=== PATIENT | female | born 1940 | race Caucasian/White ===

== ENCOUNTER → 2018-06-25 14:03 | Outpatient (CLI) | payer MEDICARE, OTHER, SELFPAY ==
[2018-06-25 14:14] LABS: RBC Urine None Seen (0-5/HPF)
[2018-06-25 14:51] LABS: Appearance Urine UA CLOUDY; Bilirubin Urine UA NEGATIVE (NEGATIVE); Color Urine UA YELLOW; Glucose Urine UA NEGATIVE (Negative); Ketones Urine UA NEGATIVE (NEGATIVE); Leukocyte Esterase Urine UA 1+ (NEGATIVE); Nitrite Urine UA POSITIVE (Negative); Occult Blood Urine UA NEGATIVE (Negative); Protein Urine UA NEGATIVE (Negative); Specific Gravity Urine UA 1.015 (1.000-1.035); Urobilinogen Urine UA 0.2 E.U./dL (0.2)
[2018-06-25 14:57] LABS: Amorphous Sediment Urine 1+; Bacteria Urine Many (>30); Culture Indicated Urine Specimen Cultured; Squamous Epithelial Cell Urine 1-5 /HPF; WBC Urine 10-30/HPF (0-5/HPF)
== END ==
PROVIDERS: Family Provider Physician Assistant; PCP Physician Assistant; Visit Provider Internal Medicine
DX: R35.0 Frequency of micturition (principal)
CPT/HCPCS: 81001; 87077; 87086; 87186

== ENCOUNTER → 2018-08-13 13:52 | Outpatient (CLI) | payer MEDICARE, OTHER, SELFPAY ==
--- NOTE | 2018-08-13 | DI.MG.S_ITS ---
UNILATERAL LEFT DIGITAL SCREENING MAMMOGRAM 3D/2D WITH CAD: 08/13/2018 CLINICAL: Routine screening. Family history of breast cancer. Comparison is made to exams dated: 06/15/2017 mammogram, 04/22/2016 mammogram, and 04/02/2015 mammogram - [facility]. There are scattered fibroglandular elements in left breast. Current study was also evaluated with a Computer Aided Detection (CAD) system. There are benign vascular calcifications and calcifications in the left breast. No significant masses, calcifications, or other findings are seen in the breast. There has been no significant interval change. IMPRESSION: There is no mammographic evidence of malignancy. A 1 year screening mammogram is recommended. This exam was interpreted at Station ID: [id number]. NOTE: For mammograms, a report in lay terms will be sent to the patient. Approximately 15% of breast malignancies will not be visualized mammographically. In the management of a palpable breast mass, a negative mammogram must not discourage biopsy of a clinically suspicious lesion. Electronically Signed By: Margarito lucia/marsha:08/13/2018 18:21:42 letter sent: Normal Exam ACR BI-RADS Category 2: Benign Finding(s) [id number]
== END ==
PROVIDERS: Family Provider Physician Assistant; PCP Physician Assistant; Visit Provider Physician Assistant
DX: Z12.31 Encounter for screening mammogram for malignant neoplasm of breast (principal); Z80.3 Family history of malignant neoplasm of breast
CPT/HCPCS: 77063; 77067

== ENCOUNTER 2018-09-02 10:56 | Emergency (ER) | payer MEDICARE, OTHER, SELFPAY ==
[2018-09-02 10:57] VITALS: BP 150/61; PULSE 125; RESP 20; TEMP 36.6; O2SAT 91; BMI 47.0
--- NOTE | 2018-09-02 11:38 | DI.RAD.S_ITS ---
PROCEDURE: XR CHEST 2V INDICATIONS: cough with shortness of breath TECHNIQUE: 2 views of the chest were acquired. COMPARISON: Merged With [facility], , CHEST 2 VIEW, 05/22/2009, 12:29. FINDINGS: Surgical changes and devices: Surgical clips project over the medial right chest. Lungs and pleura: Lungs are clear. No pleural effusions or pneumothorax. Mediastinum: Mediastinal contours are normal. Heart size is normal. Bones and chest wall: No suspicious bony abnormalities. Soft tissues appear unremarkable. IMPRESSION: No evidence acute pulmonary process. Dictated by: Bradley Carter M.D. on 09/02/2018 at 12:38 Approved by: Bradley Carter M.D. on 09/02/2018 at 12:39
[2018-09-02 12:00] VITALS: BP 109/57; PULSE 80; O2SAT 97
[2018-09-02 12:00] LABS: Influenza A and B by PCR Rapid Negative (Negative)
[2018-09-02] MEDS: SODIUM CHLORIDE 0.9% 1,000 ML 1000 ML IV (12:46)
[2018-09-02 12:51] LABS: Add Manual Diff / Slide Review NO; Basophils Absolute Auto 100 /uL (0-100); Basophils Percent Auto 0.7 % (0-2); Eosinophils Absolute Auto 300 /uL (0-450); Eosinophils Percent Auto 3.3 % (2-4); Lymphocytes Absolute Auto 1400 /uL (1100-4500); Lymphocytes Percent Auto 18.6 % (25-40); Mean Corpuscular HGB Conc 33.3 % (30-36); Mean Corpuscular Hemoglobin 29.7 PG (26-34); Mean Corpuscular Volume 89.3 fL (80-100); Monocytes Absolute Auto 700 /uL (0-900); Monocytes Percent Auto 9.1 % (3-14); Neutrophils Absolute Auto 5300 /uL (1500-7000); Neutrophils Percent Auto 68.3 % (50-75); Platelet Count 251 X10^3/uL (150-400); Red Blood Cell Count 4.37 X10^6/uL (4.0-5.2); Red Cell Distribution Width 14.2 % (11.6-14.8); White Blood Cell Count 7.8 X10^3/uL (4.5-11.0)
[2018-09-02 13:01] LABS: Alanine Aminotransferase 34 IU/L (9-52); Albumin 4.3 g/dL (3.5-5.0); Albumin Globulin Ratio 1.3 (1.0-2.8); Alkaline Phosphatase 98 U/L (38-126); Aspartate Aminotransferase 44 IU/L (14-36); Bilirubin Total 0.5 mg/dL (0.2-1.3); Blood Urea Nitrogen 9 mg/dL (7-17); Calcium 8.9 mg/dL (8.4-10.2); Carbon Dioxide 29 mmol/L (22-32); Chloride 87 mmol/L (98-107); Estimated Glomerular Filt Rate > 60.0 mL/min (>60); Globulin 3.2 g/dL (1.7-4.1); Glucose 101 mg/dL (80-110); HEMOLYSIS 34 (0-50); Potassium 4.3 mmol/L (3.4-5.1); Sodium 128 mmol/L (137-145); Total Protein 7.5 g/dL (6.3-8.2)
[2018-09-02 13:30] VITALS: PULSE 88; RESP 18; O2SAT 98
[2018-09-02] MEDS: ALBUTEROL/IPRATROPIUM 3 ML AMPUL INH (13:34)
[2018-09-02 13:35] VITALS: PULSE 78; RESP 18; O2SAT 96
[2018-09-02] MEDS: predniSONE 20 MG TABLET 60 MG PO (13:52)
[2018-09-02] MEDS: AZITHROMYCIN 250 MG TABLET 500 MG PO (13:52)
[2018-09-02 14:07] VITALS: BP 157/89; PULSE 88; RESP 18; O2SAT 98
--- NOTE | 2018-09-06 13:08 | ED.URI ---
HPI - URI/Sore Throat General Chief Complaint: Upper Respiratory Symptoms Stated Complaint: CHEST TIGHTNESS Time Seen by Provider: 09/02/18 11:45 Source: patient Mode of arrival: ambulatory Limitations: no limitations History of Present Illness HPI Narrative: Patient complains of cough and wheezing for the last 10 days. She denies fevers, chills, or sweats. She states she has been coughing up some yellowish sputum. No chest pain. No vomiting or diarrhea. No abdominal pain. No sore throat. No other complaints at this time. Related Data Home Medications Medication Instructions Recorded Confirmed MULTIVITAMIN (Multivitamin Q DAY #0 11/16/09 -) Previous Rx's Medication Instructions Recorded hydrocodone-acetaminophen 0 tab PO Q6HP PRN #10 tab 01/23/16 oxycodone-acetaminophen 0 tab PO Q4HP PRN #14 tab 06/30/16 sulfamethoxazole-trimethoprim 1 tab PO BID 7 Days #0 tab 07/06/16 albuterol sulfate 2 puff INHALATION Q4-6H PRN #8 gram 09/02/18 azithromycin [Zithromax Z-Neo] See Rx Instructions .ROUTE 09/02/18 .COMPLEX #6 tab prednisone 60 mg PO DAILY #15 tab 09/02/18 Allergies Allergy/AdvReac Type Severity Reaction Status Date / Time isoniazid [ISONIAZID] Allergy Severe RASH Verified 09/02/18 11:07 atorvastatin [ATORVASTATIN] AdvReac Severe SEVERE Verified 09/02/18 11:07 GERD, WEAKNESS Beta-Blockers AdvReac Mild LOW HR ,BP Verified 09/02/18 11:07 (Beta-Adrenergic Bloc [BETA-BLOCKERS (BETA-ADRENERGIC BLOC] Calcium Channel Blocking AdvReac Mild low hr,bp Verified 09/02/18 11:07 Agents-Dih [CALCIUM CHANNEL BLOCKING AGENTS-DIH] Review of Systems Constitutional Denies chills, Denies fever(s), Denies lethargy and Denies weakness Eyes Denies change in vision, Denies eye discharge, Denies irritation and Denies loss of vision ENT Ears, Nose, Mouth, and Throat: Denies change in voice, Reports nasal congestion, Denies neck pain and Denies sore throat Cardiovascular Denies chest pain, Denies irregular heart rhythm, Denies lightheadedness, Denies palpitations, Denies dyspnea, Denies dyspnea on exertion and Denies orthopnea Respiratory Reports change in phlegm color ( Yellow), Reports cough, Denies dyspnea, Denies dyspnea on exertion and Denies wheezing Gastrointestinal Gastrointestinal: Denies abdominal pain, Denies change in bowel habits, Denies diarrhea, Denies nausea and Denies vomiting Genitourinary Denies hematuria, Denies flank pain, Denies urinary incontinence and Denies urinary urgency Musculoskeletal Denies neck pain Integumentary/Breasts Denies pruritus, Denies erythema, Denies rash and Denies wounds Neurologic Denies confusion, Denies loss of vision and Denies weakness Psychiatric Denies anxiety, Denies confusion, Denies depression, Denies homicidal ideation and Denies suicidal ideation Endocrine Denies palpitations Hematologic/Lymphatic Denies easy bruising Allergic/Immunologic Denies wheezing [facility] Surgical History History of tonsillectomy Status post cholecystectomy Status post hysterectomy Status post knee surgery Social History Smoking Status: Never smoker Exam Initial Vital Signs Initial Vital Signs: Vital Signs Temperature 98 F 09/02/18 10:57 Pulse Rate 125 H 09/02/18 10:57 Respiratory Rate 20 09/02/18 10:57 Blood Pressure 150/61 H 09/02/18 10:57 Pulse Oximetry 91 09/02/18 10:57 Const General: cooperative and well developed Nutritional Appearance: well nourished Orientation: alert, awake, oriented x3 and not confused HENKS Head: normocephalic and atraumatic Ears: external ears normal Nose: external nose normal and No nasal discharge Face and sinus: face symmetric and No dry mucous membranes Mouth: oral mucosae normal and moist mucous membranes Teeth and gingiva: dentition normal Eyes General: appearance normal, both eyes and all related structures Eyelids: eyelids normal Conjunctivae: conjunctivae normal Sclera: sclerae normal Pupils: PERRL EOM: EOM intact bilaterally Neck Neck: normal visual inspection, trachea midline, No lymphadenopathy, No midline deformity and No JVD Lymphatic: No lymphedema Chest Chest: normal inspection of the chest Resp Effort & Inspection: normal respiratory effort, able to speak in complete sentences, no respiratory distress and no use of accessory muscles Auscultation: no rales, no rhonchi and wheezes ( moderate, bilateral, diffuse) Cardio Rate: regular rate Rhythm: regular rhythm Heart Sounds: no click, no gallops, no murmurs and no rubs Pulses: normal peripheral pulses GI Inspection: non-distended Palpation: soft, no hepatosplenomegaly, No guarding, No pulsatile mass and No tender Auscultation: normal bowel sounds Back/Spine/Pelvis Back: No CVA tenderness Cervical Spine: cervical ROM normal and No pain with cervical ROM Thoracic/Lumbar Spine: thoracic and lumbar spine normal to inspection Skin General: no rashes or lesions noted, No jaundice and No petechiae Neuro General: alert, oriented x3, gait normal and no focal motor deficits Speech: speech normal Extrem General: full ROM, no clubbing, cyanosis or edema, no pedal edema and no calf tenderness Psych Appearance: well kempt Mental Status: mental status grossly normal Attitude: cooperative Thought Content: normal and suicidality Judgment: judgment good Course Course Narrative: Patient was treated with a DuoNeb treatment and prednisone, and worked up with a chest x-ray, which was negative. She was started on Zithromax for her bronchitis. Patient was stable in the emergency department and her wheezing was improved, and I felt she was stable for discharge home. We have discussed home management of the symptoms, as well as the usual indications for return. Orders Ordered: Discontinued Medications Albuterol/Ipratropium (Duoneb) 3 ml INH NOW ONE Stop: 09/02/18 12:54 Last Admin: 09/02/18 13:34 Dose: 3 ml Azithromycin (Zithromax) 500 mg PO NOW ONE Stop: 09/02/18 12:54 Last Admin: 09/02/18 13:52 Dose: 500 mg Sodium Chloride (Normal Saline 0.9%) 1,000 mls @ 1,000 mls/hr IV BOLUS ONE Stop: 09/02/18 13:23 Last Infusion: 09/02/18 14:05 Dose: 0 mls/hr Admin: 09/02/18 12:46 Dose: 1,000 mls/hr Prednisone (Deltasone) 60 mg PO NOW ONE Stop: 09/02/18 12:54 Last Admin: 09/02/18 13:52 Dose: 60 mg MDM - URI/Sore Throat Medical Records Attestation: I reviewed the patient's medical records. Lab Data Attestation: I reviewed the patient's lab results. Result diagrams: 09/02/18 12:45 09/02/18 12:45 Lab Results 09/02/18 09/02/18 09/02/18 Range/Units 11:30 12:45 12:45 WBC 7.8 (4.5-11.0) X10^3/uL RBC 4.37 (4.0-5.2) X10^6/uL Hgb 13.0 (12.0-16.0) g/dL Hct 39.0 (36-46) % MCV 89.3 (80-100) fL MCH 29.7 (26-34) PG MCHC 33.3 (30-36) % RDW 14.2 (11.6-14.8) % Plt Count 251 (150-400) X10^3/uL Neut % (Auto) 68.3 (50-75) % Lymph % (Auto) 18.6 L (25-40) % [place] % (Auto) 9.1 (3-14) % Eos % (Auto) 3.3 (2-4) % Baso % (Auto) 0.7 (0-2) % Neut # (Auto) 5300 (5460-6967) /uL Lymph # (Auto) 1400 (6146-0410) /uL [place] # (Auto) 700 (0-900) /uL Eos # (Auto) 300 (0-450) /uL Baso # (Auto) 100 (0-100) /uL Sodium 128 L (137-145) mmol/L Potassium 4.3 (3.4-5.1) mmol/L Chloride 87 L (98-107) mmol/L Carbon Dioxide 29 (22-32) mmol/L BUN 9 (7-17) mg/dL Creatinine 0.90 (0.52-1.04) mg/dL Estimated GFR > 60.0 (>60) mL/min BUN/Creatinine Ratio 10.0 (6-22) Glucose 101 (80-110) mg/dL Calcium 8.9 (8.4-10.2) mg/dL Total Bilirubin 0.5 (0.2-1.3) mg/dL AST 44 H (14-36) IU/L ALT 34 (9-52) IU/L Alkaline Phosphatase 98 (38-126) U/L Total Protein 7.5 (6.3-8.2) g/dL Albumin 4.3 (3.5-5.0) g/dL Globulin 3.2 (1.7-4.1) g/dL Albumin/Globulin Ratio 1.3 (1.0-2.8) Influenza A & B (PCR) Negative (Negative) Imaging Data Chest x-ray: Attestation: I personally reviewed and interpreted this imaging study as follows: ( negative) Radiologist's impression: PROCEDURE: XR CHEST 2V INDICATIONS: cough with shortness of breath TECHNIQUE: 2 views of the chest were acquired. COMPARISON: [facility], CHEST 2 VIEW, 05/22/2009, 12:29. FINDINGS: Surgical changes and devices: Surgical clips project over the medial right chest. Lungs and pleura: Lungs are clear. No pleural effusions or pneumothorax. Mediastinum: Mediastinal contours are normal. Heart size is normal. Bones and chest wall: No suspicious bony abnormalities. Soft tissues appear unremarkable. IMPRESSION: No evidence acute pulmonary process. Dictated by: Bradley Carter M.D. on 09/02/2018 at 12:38 Approved by: Bradley Carter M.D. on 09/02/2018 at 12:39 Discharge Plan Departure Patient Disposition: Home Clinical Impression: Acute bronchitis with bronchospasm Discharge Date/Time: 09/02/18 14:28 Interventions: ED Discharge Assessment Last Done: 09/02/18 14:27 Instructions: DI for Acute Bronchitis Prescriptions: New azithromycin [Zithromax Z-Neo] 250 mg tablet See Rx Instructions .ROUTE .COMPLEX Qty: 6 RF: 0 prednisone 20 mg tablet 60 mg PO DAILY Qty: 15 RF: 0 albuterol sulfate 90 mcg/actuation HFA aerosol inhaler 2 puff INHALATION Q4-6H PRN (Reason: shortness of breath or wheezing) Qty: 8 RF: 0 No Action MULTIVITAMIN (Multivitamin -) Q DAY Qty: 0 RF: 0 hydrocodone-acetaminophen 5 MG/325 MG tablet PO Q6HP PRNQty: 10 RF: 0 oxycodone-acetaminophen 5 MG/325 MG tablet PO Q4HP PRNQty: 14 RF: 0 sulfamethoxazole-trimethoprim 800 MG/160 MG tablet 1 tab PO BID 7 Days Qty: 0 RF: 0 Referrals: Shabana Bear PA-C [Primary Care Provider] -
== END 2018-09-02 14:28 | disposition home or self-care (01) ==
PROVIDERS: Emergency Provider Emergency Medicine; PCP Physician Assistant
DX: J20.9 Acute bronchitis, unspecified (principal)
CPT/HCPCS: 36591; 71046; 80053; 85025; 87400; 93005; 94640; 96360; 99283; 99284

== ENCOUNTER → 2018-10-10 10:28 | Outpatient (CLI) | payer MEDICARE, OTHER, SELFPAY ==
--- NOTE | 2018-10-10 | DI.US.S_ITS ---
PROCEDURE: US RENAL COMPLETE INDICATIONS: RECURRENT UTI TECHNIQUE: Real-time scanning was performed of the kidneys and bladder, with image documentation. COMPARISON: [facility], CT, ABDOMEN WITH CONTRAST, 04/11/2011, 8:54. FINDINGS: Kidneys: Kidneys are normal in size. Right kidney measures 10.4 cm long; left kidney measures 12.4 cm long. Right renal cortical thickness is 1.3 cm; left renal cortical thickness is 1.8 cm. Renal cortical echotexture is normal. No hydronephrosis or nephrolithiasis. No suspicious solid mass lesions. Left renal cyst measuring 5.5 cm. Bladder: Pre-void bladder volume is 303 mL. Post-void residual is unable to be assessed. Pre-void images demonstrate no intraluminal masses or stones. On pre-void images, neither ureteral jets are noted with color Doppler interrogation. (Of note, ureteral jets may not be detectable in up to 25% of cases due to insufficient differences in specific gravity between ureteral and bladder urine). Miscellaneous: No free pelvic fluid. IMPRESSION: 5.5 cm left renal cyst redemonstrated; otherwise normal kidneys. No source for recurrent UTI identified. Dictated by: Ryan TSAI Interpreted: Bradley Carter MD on 10/10/2018 at 12:30 Approved by: Bradley Carter M.D. on 10/10/2018 at 13:40
== END ==
PROVIDERS: PCP Physician Assistant; Visit Provider Physician Assistant
DX: N39.0 Urinary tract infection, site not specified (principal); N28.1 Cyst of kidney, acquired
CPT/HCPCS: 76770

== ENCOUNTER → 2018-11-28 12:53 | Outpatient (CLI) | payer MEDICARE, OTHER, SELFPAY | PROVIDERS: PCP Student in an Organized Health Care Education/Training Program; Visit Provider Student in an Organized Health Care Education/Training Program | DX: E07.9 Disorder of thyroid, unspecified (principal); Z78.0 Asymptomatic menopausal state; R29.890 Loss of height; Z90.722 Acquired absence of ovaries, bilateral; Z85.3 Personal history of malignant neoplasm of breast | CPT/HCPCS: 77080 ==

== ENCOUNTER 2019-01-22 13:23 | Emergency (ER) | payer MEDICARE, OTHER, SELFPAY ==
[2019-01-22] VITALS (10 sets, daily range): BP systolic 121–139; BP diastolic 51–72; PULSE 70–89; RESP 12–16; TEMP 36.6–36.9; O2SAT 95–99; BMI 40.3
--- NOTE | 2019-01-22 13:28 | ED.UPPEXIN ---
HPI - Extremity Injury (Upper) General Chief Complaint: Extremity Injury, Upper Stated Complaint: hurt wrist/arm Time Seen by Provider: 01/22/19 13:25 Source: patient and family Mode of arrival: ambulatory Limitations: no limitations History of Present Illness HPI narrative: 70-year-old female nonsmoker with history of spinal stenosis and some gait troubles presents with a chief complaint of left wrist pain and deformity after a ground level fall. She was walking on and study ground when she tripped and fell forward onto an outstretched wrist. She has pain and deformity to her left wrist. She denies any injury to elbow or shoulder. She has full recall and denies any head neck or back pain. She denies any dizziness, weakness or lightheadedness. She denies any chest pain or shortness of breath. She is otherwise healthy and free of complaint MD complaint: injury to: left Onset (ago): minute(s) Other injuries: none Handedness: right Place: outdoors Severity: moderate Relieving factors: rest Exacerbating factors: immobilization and movement of extremity Context: fall and direct blow Associated symptoms: denies other symptoms Related Data Home Medications Medication Instructions Recorded Confirmed multivitamin 1 tab PO DAILY #0 11/16/09 01/22/19 alprazolam 0.5 mg PO DAILY 01/22/19 01/22/19 amitriptyline 100 mg PO DAILY 01/22/19 01/22/19 atorvastatin 20 mg PO DAILY 01/22/19 01/22/19 bupropion HCl 150 mg PO DAILY 01/22/19 01/22/19 diazepam 5 mg PO TID PRN 01/22/19 01/22/19 dicyclomine 20 mg PO QID 01/22/19 01/22/19 ergocalciferol (vitamin D2) 50,000 unit PO QWEEK 01/22/19 01/22/19 gabapentin 100 mg PO BID 01/22/19 01/22/19 levothyroxine 25 mcg PO DAILY 01/22/19 01/22/19 losartan-hydrochlorothiazide 1 tab PO DAILY 01/22/19 01/22/19 venlafaxine 75 mg PO DAILY 01/22/19 01/22/19 Previous Rx's Medication Instructions Recorded albuterol sulfate 2 puff INHALATION Q4-6H PRN #8 gram 09/02/18 hydrocodone-acetaminophen 1 tab PO Q4-6H PRN #20 tab 01/22/19 Allergies Allergy/AdvReac Type Severity Reaction Status Date / Time isoniazid [ISONIAZID] Allergy Severe RASH Verified 01/22/19 13:30 atorvastatin [ATORVASTATIN] AdvReac Severe SEVERE Verified 01/22/19 13:30 GERD, WEAKNESS Beta-Blockers AdvReac Mild LOW HR ,BP Verified 01/22/19 13:30 (Beta-Adrenergic Bloc [BETA-BLOCKERS (BETA-ADRENERGIC BLOC] Calcium Channel Blocking AdvReac Mild low hr,bp Verified 01/22/19 13:30 Agents-Dih [CALCIUM CHANNEL BLOCKING AGENTS-DIH] Review of Systems Constitutional Denies chills, Denies fever(s), Denies lethargy and Denies weakness Eyes Denies change in vision, Denies eye discharge, Denies irritation and Denies loss of vision ENT Ears, Nose, Mouth, and Throat: Denies change in voice, Denies neck pain and Denies sore throat Cardiovascular Denies chest pain, Denies irregular heart rhythm, Denies lightheadedness, Denies palpitations, Denies dyspnea, Denies dyspnea on exertion and Denies orthopnea Respiratory Denies cough, Denies dyspnea, Denies dyspnea on exertion and Denies wheezing Gastrointestinal Gastrointestinal: Denies abdominal pain, Denies change in bowel habits, Denies diarrhea, Denies nausea and Denies vomiting Genitourinary Denies hematuria, Denies flank pain, Denies urinary incontinence and Denies urinary urgency Musculoskeletal Reports joint swelling, Reports limited range of motion and Denies neck pain Integumentary/Breasts Denies pruritus, Denies erythema, Denies rash and Denies wounds Neurologic Denies confusion, Denies loss of vision and Denies weakness Psychiatric Denies anxiety, Denies confusion, Denies depression, Denies homicidal ideation and Denies suicidal ideation Endocrine Denies palpitations Hematologic/Lymphatic Denies easy bruising Allergic/Immunologic Denies wheezing PFSH Medical History Sciatica (Acute) Spinal stenosis of lumbar region (Acute) Surgical wound infection (Acute) Ventral hernia (Acute) Sprain of left hand (Acute) Acute bronchitis with bronchospasm (Inactive) Surgical History History of tonsillectomy Status post cholecystectomy Status post hysterectomy Status post knee surgery Social History Smoking Status: Never smoker Social History Smoking Status: Never smoker Exam Narrative Exam Narrative: GENERAL: 78-year-old female appears stated age, obviously in pain and splinting her left wrist HEAD: Atraumatic. Normocephalic. No temporal or scalp tenderness. EYES: Pupils equal round and reactive. Extraocular motions intact. No scleral icterus. No injection or drainage. ENT: Nose without bleeding, purulent drainage or septal hematoma. Throat without erythema, tonsillar hypertrophy or exudate. Uvula midline. Airway patent. NECK: Trachea midline. No JVD or lymphadenopathy. Supple, nontender, no meningeal signs. CARDIOVASCULAR: Regular rate and rhythm without murmurs, gallops, or rubs. RESPIRATORY: Clear to auscultation. Breath sounds equal bilaterally. No wheezes, rales, or rhonchi. GASTROINTESTINAL: Abdomen soft, non-tender, nondistended. No hepato-splenomegaly, or palpable masses. No guarding. EXTREMITIES: Decreased range of motion of left wrist secondary to pain, normal cap refill perhaps some decreased sensation to 3rd 4th and 5th fingers. BACK: Nontender without deformity or crepitance. No flank tenderness. NEURO: AOx3. SKIN: No rash or erythema. Initial Vital Signs Initial Vital Signs: Vital Signs Temperature 98.4 F 01/22/19 13:30 Pulse Rate 89 01/22/19 13:30 Respiratory Rate 16 01/22/19 13:30 Blood Pressure 139/51 L 01/22/19 13:30 Pulse Oximetry 99 01/22/19 13:30 Procedures Orthopedic Splinting/Casting Injury #1: Side: left Upper Extremity Injury Location: wrist Upper Extremity Immobilizer: sling/shoulder immobilizer and sugar tong splint Post splinting neuro exam: intact Post splinting vascular exam: intact Placed by: Nursing Procedural Sedation Patient Age: Patient is 5yrs or older Consent signed: Yes Time out performed: Yes Indication: fracture/dislocation reduction ASA Class: I Mallampati Airway Classification: Class II Preparation: pantograph operator applied, pulse oximeter, capnometry used, supplemental O2 applied and suction/airway equipment at bedside IV Propofol dose (mg): 40 Intraservice time/total sedation time (min): 10 ED Sedation Level: Moderate (Concious) Patient Tolerated Procedure: Well Complications: none Course Orders Ordered: ED Orders 01/22/19 13:27 XR wrist LT min 3V Stat 01/22/19 13:40 Basic Metabolic Panel Stat Complete Blood Count AUTO DIFF Stat 01/22/19 14:21 XR wrist LT 2V Stat Discontinued Medications Propofol (Diprivan) 105 mg 1 mg/kg (105 mg) IV NOW ONE Stop: 01/22/19 14:03 Last Admin: 01/22/19 14:14 Dose: 105 mg Consultations Consultation #1: Discussion with on-call orthopedics, Dr. Gray, he shares the opinion that sugar-tong and sling with close follow-up is appropriate Vital Signs - 8 hr 01/22/19 13:30 01/22/19 14:00 01/22/19 14:15 Temperature 98.4 F Pulse Rate 89 76 75 Respiratory Rate 16 12 14 Blood Pressure 139/51 L Blood Pressure [Right Arm] 134/64 Pulse Oximetry 99 95 01/22/19 14:20 01/22/19 14:25 01/22/19 14:30 Temperature Pulse Rate 72 86 72 Respiratory Rate 13 14 16 Blood Pressure Blood Pressure [Right Arm] 132/68 132/64 121/70 Pulse Oximetry 95 95 96 01/22/19 14:35 01/22/19 14:40 01/22/19 14:45 Temperature 98 F Pulse Rate 72 70 75 Respiratory Rate 16 16 14 Blood Pressure Blood Pressure [Right Arm] 126/72 132/61 132/61 Pulse Oximetry 95 96 96 01/22/19 14:56 Temperature Pulse Rate 73 Respiratory Rate 16 Blood Pressure Blood Pressure [Right Arm] 136/68 Pulse Oximetry 96 MDM - Extremity Injury (Upper) Lab Data Result diagrams: 01/22/19 13:40 01/22/19 13:40 Lab Results 01/22/19 01/22/19 Range/Units 13:40 13:40 WBC 9.0 (4.5-11.0) X10^3/uL RBC 4.25 (4.0-5.2) X10^6/uL Hgb 12.7 (12.0-16.0) g/dL Hct 37.7 (36-46) % MCV 88.8 (80-100) fL MCH 29.9 (26-34) PG MCHC 33.6 (30-36) % RDW 13.8 (11.6-14.8) % Plt Count 285 (150-400) X10^3/uL Neut % (Auto) 76.2 H (50-75) % Lymph % (Auto) 14.8 L (25-40) % [place] % (Auto) 7.5 (3-14) % Eos % (Auto) 0.9 L (2-4) % Baso % (Auto) 0.6 (0-2) % Neut # (Auto) 6900 (2273-6729) /uL Lymph # (Auto) 1300 (5807-0952) /uL [place] # (Auto) 700 (0-900) /uL Eos # (Auto) 100 (0-450) /uL Baso # (Auto) 100 (0-100) /uL Sodium 134 L (137-145) mmol/L Potassium 3.9 (3.4-5.1) mmol/L Chloride 92 L (98-107) mmol/L Carbon Dioxide 31 (22-32) mmol/L BUN 9 (7-17) mg/dL Creatinine 0.80 (0.52-1.04) mg/dL Estimated GFR > 60.0 (>60) mL/min BUN/Creatinine Ratio 11.3 (6-22) Glucose 112 H (80-110) mg/dL Calcium 9.3 (8.4-10.2) mg/dL Point of Care Testing Test Results Not applicable Imaging Data Wrist Xray: Radiologist's impression: [address] [address] XRay Report Signed Patient: Loraine Javier [facility]#: [id number] : 1940Acct:[id number] Age/Sex: 78 / FDate of Service: 01/22/19 Loc: ED Accession Number: [id number] Procedure: XR wrist LT min 3V Ordering Provider: Eugene Molina D.O. PROCEDURE: XR WRIST LT MIN 3V INDICATIONS: fall with deformity TECHNIQUE: 3 views of the wrist were acquired. COMPARISON: [facility], WRIST MINIMUM 3 VIEWS RIGHT, 09/15/2014, 18:18. FINDINGS: Bones: Acute comminuted and impacted fracture involving distal radius is seen with slight dorsal displacement and shortening of distal radial shaft. Fracture line is seen extending to the radiocarpal joint space. 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 No dislocation. No suspicious bony lesions. Scaphoid view: Scaphoid is grossly intact Soft tissues: No suspicious soft tissue calcifications. IMPRESSION: Acute impacted and comminuted intra-articular distal radial fracture as above. Dictated by: Ziggy Osullivan M.D. on 01/22/2019 at 14:06 Approved by: Ziggy Osullivan M.D. on 01/22/2019 at 14:08 Discharge Plan Departure Patient Disposition: Home Clinical Impression: Distal radius fracture, left Qualifiers: Encounter type: initial encounter Fracture type: closed Fracture morphology: Colles' Qualified Code(s): S52.532A - Colles' fracture of left radius, initial encounter for closed fracture Instructions: DI for Wrist Fracture Activity Restrictions/Additional Instructions: *You have been diagnosed with [left distal radius fracture] *What to do: *Take medications as directed *Follow up with [facility], call for an appointment. Let them know you were seen in the Emergency Department and that we ask that you be seen in follow up *Return to ER if you should have any new, worsening or concerning symptoms, such as [increased pain, numbness, tingling or other bothersome symptoms] Prescriptions: New hydrocodone-acetaminophen 5-325 mg tablet 1 tab PO Q4-6H PRN (Reason: pain) Qty: 20 RF: 0 No Action multivitamin Tablet 1 tab PO DAILY Qty: 0 RF: 0 albuterol sulfate 90 mcg/actuation HFA aerosol inhaler 2 puff INHALATION Q4-6H PRN (Reason: shortness of breath or wheezing) Qty: 8 RF: 0 bupropion HCl 150 mg tablet sustained-release 12 hr 150 mg PO DAILY RF: 0 atorvastatin 20 mg tablet 20 mg PO DAILY RF: 0 levothyroxine 25 mcg tablet 25 mcg PO DAILY RF: 0 alprazolam 0.5 mg tablet 0.5 mg PO DAILY RF: 0 dicyclomine 20 mg tablet 20 mg PO QID RF: 0 gabapentin 100 mg capsule 100 mg PO BID RF: 0 ergocalciferol (vitamin D2) 50,000 unit capsule 50,000 unit PO QWEEK RF: 0 losartan-hydrochlorothiazide 50-12.5 mg tablet 1 tab PO DAILY RF: 0 amitriptyline 100 mg tablet 100 mg PO DAILY RF: 0 diazepam 5 mg tablet 5 mg PO TID PRN (Reason: Anxiety) RF: 0 venlafaxine 75 mg tablet extended release 24hr 75 mg PO DAILY RF: 0 Referrals: Flores Groves PA-C [Primary Care Provider] - Jamin Gray MD [Physician] -
--- NOTE | 2019-01-22 13:31 | ED_ITS ---
HPI - Extremity Injury (Upper) General Chief Complaint: Extremity Injury, Upper Stated Complaint: hurt wrist/arm Time Seen by Provider: 01/22/19 13:25 Source: patient and family Mode of arrival: ambulatory Limitations: no limitations History of Present Illness HPI narrative: 70-year-old female nonsmoker with history of spinal stenosis and some gait troubles presents with a chief complaint of left wrist pain and de formity after a ground level fall. She was walking on and study ground when she tripped and fell forward onto an outstretched wrist. She has pain and deformity to her left wrist. She denies any injury to elbow or shoulder. She has full recall and denies any head neck or back pain. She denies any dizziness, weakness or lightheadedness. She denies any chest pain or shortness of breath. She is otherwise healthy and free of complaint MD complaint: injury to: left Onset (ago): minute(s) Other injuries: none Handedness: right Place: outdoors Severity: moderate Relieving factors: rest Exacerbating factors: immobilization and movement of extremity Context: fall and direct blow Associated symptoms: denies other symptoms Related Data Home Medications Medication Instructions Recorded Confirmed multivitamin 1 tab PO DAILY #0 11/16/09 01/22/19 alprazolam 0.5 mg PO DAILY 01/22/19 01/22/19 amitriptyline 100 mg PO DAILY 01/22/19 01/22/19 atorvastatin 20 mg PO DAILY 01/22/19 01/22/19 bupropion HCl 150 mg PO DAILY 01/22/19 01/22/19 diazepam 5 mg PO TID PRN 01/22/19 01/22/19 dicyclomine 20 mg PO QID 01/22/19 01/22/19 ergocalciferol (vitamin D2) 50,000 unit PO QWEEK 01/22/19 01/22/19 gabapentin 100 mg PO BID 01/22/19 01/22/19 levothyroxine 25 mcg PO DAILY 01/22/19 01/22/19 losartan-hydrochlorothiazide 1 tab PO DAILY 01/22/19 01/22/19 venlafaxine 75 mg PO DAILY 01/22/19 01/22/19 Previous Rx's Medication Instructions Recorded albuterol sulfate 2 puff INHALATION Q4-6H PRN #8 gram 09/02/18 hydrocodone-acetaminophen 1 tab PO Q4-6H PRN #20 tab 01/22/19 Allergies Allergy/AdvReac Type Severity Reaction Status Date / Time isoniazid [ISONIAZID] Allergy Severe RASH Verified 01/22/19 13:30 atorvastatin [ATORVASTATIN] AdvReac Severe SEVERE Verified 01/22/19 13:30 GERD, WEAKNESS Beta-Blockers AdvReac Mild LOW HR ,BP Verified 01/22/19 13:30 (Beta-Adrenergic Bloc [BETA-BLOCKERS (BETA-ADRENERGIC BLOC] Calcium Channel Blocking AdvReac Mild low hr,bp Verified 01/22/19 13:30 Agents-Dih [CALCIUM CHANNEL BLOCKING AGENTS-DIH] Review of Systems Constitutional Denies chills, Denies fever(s), Denies lethargy and Denies weakness Eyes Denies change in vision, Denies eye discharge, Denies irritation and Denies loss of vision ENT Ears, Nose, Mouth, and Throat: Denies change in voice, Denies neck pain and Denies sore throat Cardiovascular Denies chest pain, Denies irregular heart rhythm, Denies lightheadedness, Denies palpitations, Denies dyspnea, Denies dyspnea on exertion and Denies orthopnea Respiratory Denies cough, Denies dyspnea, Denies dyspnea on exertion and Denies wheezing Gastrointestinal Gastrointestinal: Denies abdominal pain, Denies change in bowel habits, Denies diarrhea, Denies nausea and Denies vomiting Genitourinary Denies hematuria, Denies flank pain, Denies urinary incontinence and Denies urinary urgency Musculoskeletal Reports joint swelling, Reports limited range of motion and Denies neck pain Integumentary/Breasts Denies pruritus, Denies erythema, Denies rash and Denies wounds Neurologic Denies confusion, Denies loss of vision and Denies weakness Psychiatric Denies anxiety, Denies confusion, Denies depression, Denies homicidal ideation and Denies suicidal ideation Endocrine Denies palpitations Hematologic/Lymphatic Denies easy bruising Allergic/Immunologic Denies wheezing PFSH Medical History Sciatica (Acute) Spinal stenosis of lumbar region (Acute) Surgical wound infection (Acute) Ventral hernia (Acute) Sprain of left hand (Acute) Acute bronchitis with bronchospasm (Inactive) Surgical History History of tonsillectomy Status post cholecystectomy Status post hysterectomy Status post knee surgery Social History Smoking Status: Never smoker Social History Smoking Status: Never smoker Exam Narrative Exam Narrative: GENERAL: 78-year-old female appears stated age, obviously in pain and splinting her left wrist HEAD: Atraumatic. Normocephalic. No temporal or scalp tenderness. EYES: Pupils equal round and reactive. Extraocular motions intact. No scleral icterus. No injection or drainage. ENT: Nose without bleeding, purulent drainage or septal hematoma. Throat without erythema, tonsillar hypertrophy or exudate. Uvula midline. Airway patent. NECK: Trachea midline. No JVD or lymphadenopathy. Supple, nontender, no meningeal signs. CARDIOVASCULAR: Regular rate and rhythm without murmurs, gallops, or rubs. RESPIRATORY: Clear to auscultation. Breath sounds equal bilaterally. No wheezes, rales, or rhonchi. GASTROINTESTINAL: Abdomen soft, non-tender, nondistended. No hepato- splenomegaly, or palpable masses. No guarding. EXTREMITIES: Decreased range of motion of left wrist secondary to pain, normal cap refill perhaps some decreased sensation to 3rd 4th and 5th fingers. BACK: Nontender without deformity or crepitance. No flank tenderness. NEURO: AOx3. SKIN: No rash or erythema. Initial Vital Signs Initial Vital Signs: Vital Signs Temperature 98.4 F 01/22/19 13:30 Pulse Rate 89 01/22/19 13:30 Respiratory Rate 16 01/22/19 13:30 Blood Pressure 139/51 L 01/22/19 13:30 Pulse Oximetry 99 01/22/19 13:30 Procedures Orthopedic Splinting/Casting Injury #1: Side: left Upper Extremity Injury Location: wrist Upper Extremity Immobilizer: sling/shoulder immobilizer and sugar tong splint Post splinting neuro exam: intact Post splinting vascular exam: intact Placed by: Nursing Procedural Sedation Patient Age: Patient is 5yrs or older Consent signed: Yes Time out performed: Yes Indication: fracture/dislocation reduction ASA Class: I Mallampati Airway Classification: Class II Preparation: ekg monitor tech applied, pulse oximeter, capnometry used, supplemental O2 applied and suction/airway equipment at bedside IV Propofol dose (mg): 40 Intraservice time/total sedation time (min): 10 ED Sedation Level: Moderate (Concious) Patient Tolerated Procedure: Well Complications: none Course Orders Ordered: ED Orders 01/22/19 13:27 XR wrist LT min 3V Stat 01/22/19 13:40 Basic Metabolic Panel Stat Complete Blood Count AUTO DIFF Stat 01/22/19 14:21 XR wrist LT 2V Stat Discontinued Medications Propofol (Diprivan) 105 mg 1 mg/kg (105 mg) IV NOW ONE Stop: 01/22/19 14:03 Last Admin: 01/22/19 14:14 Dose: 105 mg Consultations Consultation #1: Discussion with on-call orthopedics, Dr. Gray, he shares the opinion that sugar-tong and sling with close follow-up is appropriate Vital Signs - 8 hr 01/22/19 13:30 01/22/19 14:00 01/22/19 14:15 Temperature 98.4 F Pulse Rate 89 76 75 Respiratory Rate 16 12 14 Blood Pressure 139/51 L Blood Pressure [Right Arm] 134/64 Pulse Oximetry 99 95 01/22/19 14:20 01/22/19 14:25 01/22/19 14:30 Temperature Pulse Rate 72 86 72 Respiratory Rate 13 14 16 Blood Pressure Blood Pressure [Right Arm] 132/68 132/64 121/70 Pulse Oximetry 95 95 96 01/22/19 14:35 01/22/19 14:40 01/22/19 14:45 Temperature 98 F Pulse Rate 72 70 75 Respiratory Rate 16 16 14 Blood Pressure Blood Pressure [Right Arm] 126/72 132/61 132/61 Pulse Oximetry 95 96 96 01/22/19 14:56 Temperature Pulse Rate 73 Respiratory Rate 16 Blood Pressure Blood Pressure [Right Arm] 136/68 Pulse Oximetry 96 MDM - Extremity Injury (Upper) Lab Data Result diagrams: 01/22/19 13:40 01/22/19 13:40 Lab Results 01/22/19 01/22/19 Range/Units 13:40 13:40 WBC 9.0 (4.5-11.0) X10^3/uL RBC 4.25 (4.0-5.2) X10^6/uL Hgb 12.7 (12.0-16.0) g/dL Hct 37.7 (36-46) % MCV 88.8 (80-100) fL MCH 29.9 (26-34) PG MCHC 33.6 (30-36) % RDW 13.8 (11.6-14.8) % Plt Count 285 (150-400) X10^3/uL Neut % (Auto) 76.2 H (50-75) % Lymph % (Auto) 14.8 L (25-40) % [place] % (Auto) 7.5 (3-14) % Eos % (Auto) 0.9 L (2-4) % Baso % (Auto) 0.6 (0-2) % Neut # (Auto) 6900 (7317-6983) /uL Lymph # (Auto) 1300 (4289-3196) /uL [place] # (Auto) 700 (0-900) /uL Eos # (Auto) 100 (0-450) /uL Baso # (Auto) 100 (0-100) /uL Sodium 134 L (137-145) mmol/L Potassium 3.9 (3.4-5.1) mmol/L Chloride 92 L (98-107) mmol/L Carbon Dioxide 31 (22-32) mmol/L BUN 9 (7-17) mg/dL Creatinine 0.80 (0.52-1.04) mg/dL Estimated GFR > 60.0 (>60) mL/min BUN/Creatinine Ratio 11.3 (6-22) Glucose 112 H (80-110) mg/dL Calcium 9.3 (8.4-10.2) mg/dL Point of Care Testing Test Results Not applicable Imaging Data Wrist Xray: Radiologist's impression: [address] [address] XRay Report Signed Patient: Loraine Javier [facility]#: [id number] : 1940Acct:[id number] Age/Sex: 78 / FDate of Service: 01/22/19 Loc: ED Accession Number: [id number] Procedure: XR wrist LT min 3V Ordering Provider: Eugene Molina D.O. PROCEDURE: XR WRIST LT MIN 3V INDICATIONS: fall with deformity TECHNIQUE: 3 views of the wrist were acquired. COMPARISON: [facility], WRIST MINIMUM 3 VIEWS RIGHT, 09/15/2014, 18:18. FINDINGS: Bones: Acute comminuted and impacted fracture involving distal radius is seen with slight dorsal displacement and shortening of distal radial shaft. Fracture line is seen extending to the radiocarpal joint space. 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 No dislocation. No suspicious bony lesions. Scaphoid view: Scaphoid is grossly intact Soft tissues: No suspicious soft tissue calcifications. IMPRESSION: Acute impacted and comminuted intra-articular distal radial fracture as above. Dictated by: Ziggy Osullivan M.D. on 01/22/2019 at 14:06 Approved by: Ziggy Osullivan M.D. on 01/22/2019 at 14:08 Discharge Plan Departure Patient Disposition: Home Clinical Impression: Distal radius fracture, left Qualifiers: Encounter type: initial encounter Fracture type: closed Fracture morphology: Colles' Qualified Code(s): S52.532A - Colles' fracture of left radius, initial encounter for closed fracture Instructions: DI for Wrist Fracture Activity Restrictions/Additional Instructions: *You have been diagnosed with [left distal radius fracture] *What to do: *Take medications as directed *Follow up with [facility], call for an appointment. Let them know you were seen in the Emergency Department and that we ask that you be seen in follow up *Return to ER if you should have any new, worsening or concerning symptoms, such as [increased pain, numbness, tingling or other bothersome symptoms] Prescriptions: New hydrocodone-acetaminophen 5-325 mg tablet 1 tab PO Q4-6H PRN (Reason: pain) Qty: 20 RF: 0 No Action multivitamin Tablet 1 tab PO DAILY Qty: 0 RF: 0 albuterol sulfate 90 mcg/actuation HFA aerosol inhaler 2 puff INHALATION Q4-6H PRN (Reason: shortness of breath or wheezing) Qty: 8 RF: 0 bupropion HCl 150 mg tablet sustained-release 12 hr 150 mg PO DAILY RF: 0 atorvastatin 20 mg tablet 20 mg PO DAILY RF: 0 levothyroxine 25 mcg tablet 25 mcg PO DAILY RF: 0 alprazolam 0.5 mg tablet 0.5 mg PO DAILY RF: 0 dicyclomine 20 mg tablet 20 mg PO QID RF: 0 gabapentin 100 mg capsule 100 mg PO BID RF: 0 ergocalciferol (vitamin D2) 50,000 unit capsule 50,000 unit PO QWEEK RF: 0 losartan-hydrochlorothiazide 50-12.5 mg tablet 1 tab PO DAILY RF: 0 amitriptyline 100 mg tablet 100 mg PO DAILY RF: 0 diazepam 5 mg tablet 5 mg PO TID PRN (Reason: Anxiety) RF: 0 venlafaxine 75 mg tablet extended release 24hr 75 mg PO DAILY RF: 0 Referrals: Flores Groves PA-C [Primary Care Provider] - Jamin Gray MD [Physician] -
[2019-01-22 13:50] LABS: Add Manual Diff / Slide Review NO; Basophils Absolute Auto 100 /uL (0-100); Basophils Percent Auto 0.6 % (0-2); Eosinophils Absolute Auto 100 /uL (0-450); Eosinophils Percent Auto 0.9 % (2-4); Hematocrit 37.7 % (36-46); Hemoglobin 12.7 g/dL (12.0-16.0); Lymphocytes Absolute Auto 1300 /uL (1100-4500); Lymphocytes Percent Auto 14.8 % (25-40); Mean Corpuscular HGB Conc 33.6 % (30-36); Mean Corpuscular Hemoglobin 29.9 PG (26-34); Mean Corpuscular Volume 88.8 fL (80-100); Monocytes Absolute Auto 700 /uL (0-900); Monocytes Percent Auto 7.5 % (3-14); Neutrophils Absolute Auto 6900 /uL (1500-7000); Neutrophils Percent Auto 76.2 % (50-75); Platelet Count 285 X10^3/uL (150-400); Red Blood Cell Count 4.25 X10^6/uL (4.0-5.2); Red Cell Distribution Width 13.8 % (11.6-14.8)
[2019-01-22 14:04] LABS: BUN Creatinine Ratio 11.3 (6-22); Blood Urea Nitrogen 9 mg/dL (7-17); Calcium 9.3 mg/dL (8.4-10.2); Carbon Dioxide 31 mmol/L (22-32); Chloride 92 mmol/L (98-107); Estimated Glomerular Filt Rate > 60.0 mL/min (>60); Glucose 112 mg/dL (80-110); HEMOLYSIS < 15 (0-50); Potassium 3.9 mmol/L (3.4-5.1); Sodium 134 mmol/L (137-145)
[2019-01-22] MEDS: PROPOFOL 200 MG/20 ML VIAL 105 MG IV (14:14)
--- NOTE | 2019-01-22 14:21 | DI.RAD.S_ITS ---
PROCEDURE: XR WRIST LT 2V INDICATIONS: post reduction TECHNIQUE: 2 views of the wrist were acquired. COMPARISON: [facility], CR, XR WRIST LT MIN 3V, 01/22/2019, 13:33. FINDINGS: Bones: There is interval reduction of earlier noted comminuted impacted distal radial fracture with improved wrist alignment. No new fracture or dislocation is seen. No suspicious bony lesions. Scaphoid view: Scaphoid is grossly intact. Soft tissues: No suspicious soft tissue calcifications. IMPRESSION: Interval reduction of earlier noted comminuted distal radial fracture with improved wrist alignment. Dictated by: Ziggy Osullivan M.D. on 01/22/2019 at 14:55 Approved by: Ziggy Osullivan M.D. on 01/22/2019 at 14:55
== END 2019-01-22 15:37 | disposition home or self-care (01) ==
PROVIDERS: Emergency Provider Emergency Medicine; PCP Student in an Organized Health Care Education/Training Program
DX: S52.532A Colles' fracture of left radius, initial encounter for closed fracture (principal); W01.0XXA Fall on same level from slipping, tripping and stumbling without subsequent striking against object, initial encounter
CPT/HCPCS: 25605; 29105; 29240; 36591; 73100; 73110; 80048; 85025; 94770; 99152; 99283; 99285; J2704

== ENCOUNTER 2019-01-25 08:05 | Day surgery (SDC) | payer MEDICARE, OTHER, SELFPAY ==
[2019-01-24 14:31] VITALS: BMI 48.6
[2019-01-25] VITALS (12 sets, daily range): BP systolic 118–155; BP diastolic 52–77; PULSE 75–87; RESP 8–16; TEMP 36.1–36.6; O2SAT 89–97; BMI 41.1
[2019-01-25] MEDS: LACTATED RINGERS 1,000 ML 42 ML IV (09:03)
--- NOTE | 2019-01-25 09:50 | PM.OP.1 ---
Operative Date/Time/Diagnoses Date of procedure: 01/25/19 Time of procedure: 11:40 Pre-op diagnosis: Comminuted intra-articular distal radius fracture left wrist Left carpal tunnel syndrome Post-op diagnosis: same Procedure & Clinicians Procedure: Open reduction internal fixation left distal radius fracture with locking plate Left carpal tunnel release Same procedure as scheduled: Yes Indications: The patient is a 78-year-old woman who sustained a displaced intra-articular left wrist fracture. The patient also has a history of carpal tunnel syndrome which has become more symptomatic since her fracture. I do not think this is an acute carpal tunnel syndrome but she is getting more persistent numbness since the injury. Given the increased carpal tunnel symptoms and the displaced nature of the fracture I have recommended a carpal tunnel release along with open reduction internal fixation. The nature of the procedure including the risks, benefits, alternatives, postoperative course and expected outcome were discussed and all questions answered. Operative site was confirmed and marked. Surgeon: Jamin Gray [employer] Specialist: Mikaela Bernstein Anesthesia Type: General and Local Operative Notes Closure Type: primary Specimen(s): none sent Prosthetic devices, grafts, tissues, transplants, or devices: [employer] innovations locking DVR distal radial plate Applied: implant(s) Blood products transfused: none Tourniquet time (min): 50 Procedure in detail: Patient was taken the operative suite and placed under general anesthesia. She was given 2 g of Ancef prior to surgery. The arm was then prepped and draped usual sterile fashion. The arm was exsanguinated with Esmarch dressing and tourniquet raised to 250 torr. The carpal tunnel release was performed 1st. A 3 cm incision was made directly over the carpal ligament in the wrist. This was done as a separate incision from the incision for her wrist fracture. Sharp dissection was carried down to the carpal ligament which was fully incised both proximally and distally. This nicely decompressed the contents of the carpal canal. The carpal canal and its contents were otherwise unremarkable. Next an 8 cm incision was made right over the flexor carpi radialis tendon extending to the wrist flexion crease. Electrocautery was used for hemostasis. The flexor carpi radialis tendon was identified and the sheath incised. The tendon was retracted and the inferior sheath that was excised. Blunt dissection was then carried out down to the pronator quadratus muscle. The pronator was released from the radial side of the radius and elevated revealing the distal radius and fracture. The locking plate was selected and initially secured to the shaft with a K-wire to evaluate for positioning. Once the proper position was obtained it was then secured to the shaft with a single bicortical screw. The fracture was reduced and a distal K-wire placed to check for positioning. Once satisfactory reduction was obtained all of the distal holes were filled with smooth pegs. AP and lateral fluoroscopy showed nice position of the fracture and hardware with no penetration in the joint. The 2 remaining bicortical shaft screws were then placed. Again final fluoroscopy showed nice position of the plate and fracture. The wound was copiously irrigated. It was closed with interrupted 3 O Vicryl subcuticular sutures and a running 5. Nylon suture. The carpal tunnel incision was also irrigated and anesthetized and closed with 4 0 nylon horizontal mattress sutures. A total of 30 cc of 0.5% Marcaine with epinephrine was used. The wounds were dressed with Xeroform and sterile gauze. A short-arm volar plaster splint was placed. The patient tolerated procedure well and was returned recovery room in good condition. Complications: none Condition: stable Disposition: same day surgery Plan for aftercare: The patient was placed into a short-arm volar splint. She will be encouraged to start pronation supination and finger range of motion as soon as possible. She will follow up in 10-14 days and most likely be placed into a removable brace.
--- NOTE | 2019-01-25 09:52 | PM.PREOP ---
Pre-operative Note Interval Note History & Physical reviewed/Exam performed by Physician: Yes Changes to H&P: No
[2019-01-25] MEDS: CEFAZOLIN 2 GM/100 ML FROZ.PIGGY IV (10:08)
--- NOTE | 2019-01-25 10:30 | SUR.OPER ---
Supine on padded OR bed, head on pillow, right arm secured on padded arm boards at <90 degrees abduction, left arm on arm table under control of surgeon, legs uncrossed, safety belt at thigh, tape over blanket over lower legs.
[2019-01-25] MEDS: BUPIVACAINE 0.5% W/ EPI (PF) VIAL 30 ML INJ (10:44)
--- NOTE | 2019-01-25 12:06 | SUR.PHASEI ---
Arouses easily to voice, continues to deny pain/nausea, took a couple ice chips but declines any more. Very sleepy. Resp unlabored, skin warm and dry.
[2019-01-25] MEDS: fentaNYL 100 MCG/2 ML INJ 50 MCG IV ×2 (12:17→12:28)
--- NOTE | 2019-01-25 12:19 | SUR.PHASEI ---
1217 medicated for surgical pain, It hurts. rates pain 7/10, very sleepy, unable to keep eyes open, so she was given the lower dose for patient safety. Encouraged her to begin PO intake in order to start oral meds, She is so sleepy that she doesn't agree to any liquids or solids. Valentin
[2019-01-25] MEDS: HYDROCODONE/ACET 5/325 TABLET 1 TAB PO ×2 (12:40→12:55)
--- NOTE | 2019-01-25 12:44 | SUR.PHASEI ---
1240 given applesauce and PO rx. Asked where her daughter was, the first question that she has asked. HOB elevated, needs periodic reminders to deep breath in order to maintain sat above 90% on 1LNP. Spoke with Dr. Meade regarding patients pain level and desat with IV rx. OK'd given 2nd hydrocodone now.
--- NOTE | 2019-01-25 13:11 | SUR.PHASEI ---
1308 to OPD, report given, no nausea, calm, stable with ice and elevation. OPD will observe to ensure that she can maintain RA sat prior to discharge and monitor pain response to medication.
== END 2019-01-25 13:44 | disposition home or self-care (01) ==
PROVIDERS: PCP Student in an Organized Health Care Education/Training Program; Visit Provider Orthopaedic Surgery
PROC: (CPT 25607; principal; 2019-01-25 10:15)
PROC: (CPT 64721; 2019-01-25 10:15)
DX: S52.572A Other intraarticular fracture of lower end of left radius, initial encounter for closed fracture (principal); G56.02 Carpal tunnel syndrome, left upper limb; W18.30XA Fall on same level, unspecified, initial encounter; Y93.H9 Activity, other involving exterior property and land maintenance, building and construction
CPT/HCPCS: 25607; 64721; J0690; J1100; J2250; J2405; J2704; J3010

== ENCOUNTER → 2019-11-13 11:25 | Outpatient (CLI) | payer MEDICARE, OTHER, SELFPAY ==
--- NOTE | 2019-11-13 | DI.MG.S_ITS ---
UNILATERAL LEFT DIGITAL SCREENING MAMMOGRAM 3D/2D WITH CAD POST MASTECTOMY: 11/13/2019 CLINICAL: Routine screening. Personal history of left breast cancer. Family history of breast cancer. Comparison is made to exams dated: 08/13/2018 mammogram, 06/15/2017 mammogram, and 04/22/2016 mammogram - [facility]. There are scattered fibroglandular elements in left breast. Current study was also evaluated with a Computer Aided Detection (CAD) system. There are benign calcifications in the left breast. There also are benign vascular calcifications in the left breast. No significant masses, calcifications, or other findings are seen in the breast. There has been no significant interval change. IMPRESSION: There is no mammographic evidence of malignancy. A 1 year screening mammogram is recommended. This exam was interpreted at Station ID: [id number]. NOTE: For mammograms, a report in lay terms will be sent to the patient. Approximately 15% of breast malignancies will not be visualized mammographically. In the management of a palpable breast mass, a negative mammogram must not discourage biopsy of a clinically suspicious lesion. Electronically Signed By: Jamin sutton/marsha:11/13/2019 12:05:15 letter sent: Normal Exam ACR BI-RADS Category 2: Benign Finding(s) 3342F
== END ==
PROVIDERS: PCP Student in an Organized Health Care Education/Training Program; Referring Provider Student in an Organized Health Care Education/Training Program; Visit Provider Student in an Organized Health Care Education/Training Program
DX: Z12.31 Encounter for screening mammogram for malignant neoplasm of breast (principal); Z85.3 Personal history of malignant neoplasm of breast; Z80.3 Family history of malignant neoplasm of breast
CPT/HCPCS: 77063; 77067

== ENCOUNTER → 2019-12-10 16:21 | Outpatient (CLI) | payer MEDICARE, OTHER, SELFPAY ==
--- NOTE | 2019-12-10 | DI.RAD.S_ITS ---
PROCEDURE: XR LUMBAR SPINE 2-3V INDICATIONS: Other intervertebral disc degeneration, lumbar region TECHNIQUE: 3 views of the lumbar spine were acquired. COMPARISON: [facility], TRISTAN, SPINE LUMB 2 OR 3VW, 07/21/2016, 14:35. [facility], TRISTAN, L-SPINE 2-3 VIEWS, 01/11/2016, 8:41. FINDINGS: Bones: No fracture or focal osseous destruction. Posterior spinal fixation hardware from L3-L5 with interbody cage graft. Hardware appears intact expected postoperative alignment. Moderate L2-L3 disc degeneration. Multilevel degenerative endplate sclerosis and spurring. Diffuse facet arthropathy. Soft tissues: Scattered vascular calcifications seen in the aorta. IMPRESSION: Postsurgical changes from L3-L5 in unchanged alignment. Slight interval progression in L2-L3 disc degeneration. Dictated by: Antoine Herman M.D. on 12/10/2019 at 17:07 Approved by: Antoine Herman M.D. on 12/10/2019 at 17:09
== END ==
PROVIDERS: PCP Student in an Organized Health Care Education/Training Program; Referring Provider Student in an Organized Health Care Education/Training Program; Visit Provider Student in an Organized Health Care Education/Training Program
DX: M51.36 Other intervertebral disc degeneration, lumbar region (principal); M47.816 Spondylosis without myelopathy or radiculopathy, lumbar region; Z98.1 Arthrodesis status
CPT/HCPCS: 72100

== ENCOUNTER → 2019-12-13 10:58 | Outpatient (CLI) | payer MEDICARE, OTHER, SELFPAY ==
--- NOTE | 2019-12-13 | DI.RAD.S_ITS ---
PROCEDURE: XR THORACIC SPINE 3V INDICATIONS: PAIN IN THORACIC SPINE TECHNIQUE: 3 views of the thoracic spine were acquired. COMPARISON: None. FINDINGS: Bones: No fractures or dislocations. No suspicious bony lesions. Lateral curvature of the spine and diffuse discogenic changes. Soft tissues: No paravertebral stripe thickening. IMPRESSION: Diffuse spondylosis. No fracture identified Lateral curvature of the spine Dictated by: Antoine Herman M.D. on 12/13/2019 at 12:35 Approved by: Antoine Herman M.D. on 12/13/2019 at 12:36
== END ==
PROVIDERS: PCP Student in an Organized Health Care Education/Training Program; Referring Provider Student in an Organized Health Care Education/Training Program; Visit Provider Student in an Organized Health Care Education/Training Program
DX: M54.6 Pain in thoracic spine (principal); M47.814 Spondylosis without myelopathy or radiculopathy, thoracic region
CPT/HCPCS: 72072

== ENCOUNTER 2020-03-26 15:14 | Emergency (ER) | payer MEDICARE, OTHER, SELFPAY ==
--- NOTE | 2020-03-26 15:20 | ED_ITS ---
HPI - General Adult General Chief complaint: Fever Stated complaint: concerns of fever, abrasion on forehead aswell Time Seen by Provider: 03/26/20 15:20 History of Present Illness HPI narrative: 79-year-old woman, positive Covid test approximately 12 days ago, presents 48 after is a after stumbling at the airport falling down and hitting her left eye and sustaining a black eye. Apparently she was visiting in [place], had a slight cough and everybody in their social [place] was tested for Covid. She tested positive and was told to self quarantine for 2 weeks. Because she had minimal symptoms and ?Covid is just out there? she chose to fly home to [facility] on March 24. She suffered a mechanical fall had a significantly swollen left eye so much so that she stated she could not open the eyelid. Today she went to the clinic in [place] to have the I evaluated and was noted to have a temperature above 101? and was directed to the emergency department. Her temperature was 99.5? in the emergency department and her only complaints are mild tenderness around the eye, no headache, no neck pain no posterior head pain, no confusion, no other neurologic complaints. She notes she has been taking Tylenol and actually did try some ibuprofen for the tenderness around the eye and then was having some abdominal discomfort. She attributes that completely to the ibuprofen. She reports no vomiting, no diarrhea, no rashes, no cough, no dyspnea, no change to taste or smell and feels that her gait is normal and steady. Related Data Home Medications Medication Instructions Recorded Confirmed multivitamin 1 tab PO DAILY #0 11/16/09 01/25/19 amitriptyline 100 mg PO DAILY 01/22/19 01/25/19 atorvastatin 20 mg PO DAILY 01/22/19 01/25/19 diazepam 5 mg PO TID PRN 01/22/19 01/25/19 dicyclomine 20 mg PO QID 01/22/19 01/25/19 ergocalciferol (vitamin D2) 50,000 unit PO QWEEK 01/22/19 01/25/19 gabapentin 200 mg PO DAILY 01/22/19 01/25/19 levothyroxine 25 mcg PO DAILY 01/22/19 01/25/19 losartan-hydrochlorothiazide 1 tab PO BID 01/22/19 01/25/19 venlafaxine 75 mg PO DAILY 01/22/19 01/25/19 biotin 5,000 mcg SUBLINGUAL DAILY 01/25/19 01/25/19 flaxseed oil 1,000 mg PO DAILY 01/25/19 01/25/19 hydrocodone-acetaminophen 1 tab PO Q6-8H PRN 01/25/19 01/25/19 Previous Rx's Medication Instructions Recorded hydrocodone-acetaminophen [Beggs] 1 tab PO Q4-6H PRN #40 tab 01/25/19 Allergies Allergy/AdvReac Type Severity Reaction Status Date / Time isoniazid [ISONIAZID] Allergy Severe RASH Verified 03/26/20 15:37 zolpidem [From Ambien] AdvReac Severe it makes Verified 03/26/20 15:37 me crazy Beta-Blockers AdvReac Mild LOW HR ,BP Verified 03/26/20 15:37 (Beta-Adrenergic Bloc [BETA-BLOCKERS (BETA-ADRENERGIC BLOC] Calcium Channel Blocking AdvReac Mild low hr,bp Verified 03/26/20 15:37 Agents-Dih [CALCIUM CHANNEL BLOCKING AGENTS-DIH] oxycodone AdvReac it's too Verified 03/26/20 15:37 strong; doesn't remember rxn Review of Systems Review of Systems Narrative: Remainder of review of systems including constitutional, ENT, cardiovascular, respiratory, GI, , musculoskeletal, skin, neurologic and psychiatric systems reviewed and are unremarkable except as noted in HPI. Patient History Medical History (Updated 03/26/20 @ 16:11 by Savita Jaramillo MD) Acute bronchitis with bronchospasm (Inactive) COVID-19 (Inactive) Left wrist fracture (Acute 12/26/18) Sciatica (Acute) Spinal stenosis of lumbar region (Acute) Sprain of left hand (Acute) Surgical wound infection (Acute) Ventral hernia (Acute) Surgical History (Updated 01/24/19 @ 14:43 by Genia Sandoval RN) History of carpal tunnel surgery of right wrist (Acute 01/22/15) History of lumbar fusion (Acute 01/11/16) History of tonsillectomy Status post cholecystectomy Status post hysterectomy Status post knee surgery Social History household members: none Smoking Status: Never smoker alcohol intake: current Smoking Status: Never smoker alcohol intake frequency: holidays/special occasions only Substance Use Type: does not use Exam Narrative Exam Narrative: General: no acute distress. Well-nourished well-developed, HEENT: Bruising around the left eye and upper cheek. She is able to open the eye completely and has full and unrestricted range of motion in all planes for the eye movement. No change to vision. No conjunctiva will hemorrhage. Moist mucous membranes, normal sclera with reactive pupils. Palpation around the area has mild tenderness only with no evidence of skull fracture and no suggestion of periorbital/orbital fracture. Tympanic membranes are pearly acosta bilaterally. There is no TMJ tenderness or pain with opening her jaw. Neck: No JVD, supple, no cervical spine tenderness or paraspinous spasm of the cervical spine Respiratory: Lungs with minor wheeze in the right axillary line that clears with deep breathing, no rales no rhonchi. Full and symmetrical air movement Cardiac: Regular rate and rhythm no murmurs no bruits Abdomen: Soft nontender good bowel tones, no flank pain Skin: Warm and dry, no rashes Neurologic: Grossly neurologically intact with no obvious asymmetries or abnormalities Extremities: No trauma, well perfused Psych: Cooperative, moderate cognitive deficits and frequently ends her sentences with ?will you know? Initial Vital Signs Initial Vital Signs: Vital Signs Temperature 99.5 F 03/26/20 15:34 Pulse Rate 80 03/26/20 15:34 Respiratory Rate 16 03/26/20 15:34 Blood Pressure 195/91 H 03/26/20 15:34 Pulse Oximetry 98 03/26/20 15:34 Course Orders Ordered: ED Orders 03/26/20 15:37 XR chest 1V Stat Blood Culture Stat Complete Blood Count AUTO DIFF Stat Comprehensive Metabolic Panel Stat Lactate (Lactic Acid) Stat Lipase Stat Partial Thromboplastin Time Stat Procalcitonin Stat Prothrombin Time INR Stat Vital Signs Vital signs: Vital Signs - 8 hr 03/26/20 15:34 Temperature 99.5 F Pulse Rate 80 Respiratory Rate 16 Blood Pressure 195/91 H Pulse Oximetry 98 Medical Decision Making [facility] Narrative Medical decision making narrative: 79-year-old woman presents looking for reassurance regarding the nicely resolving hematoma around her left eye. She sustained this with the fall. There is no evidence of orbital or skull fracture. No evidence of globe injury or vision deficit. Aside from age she meets no criteria for head imaging. Regarding the positive Covid test 12 days ago and return to [facility] through multiple different air ports 10 days ago I do not have additional zuñiga ggestions for required workup. She is not actually febrile with a temperature of only 99.5 in the emergency department there is no hypoxia, no tachypnea. It is possible that her minimally symptomatic course was simply the 1st 2 days of being positive and she could worsen. With the abdominal pain that she is attributing to the ibuprofen questions continue. She clearly did not think that it was important after quarantine for the full recommended 14 days. I have stressed to her that it is important to remain at home and if she has any worsening symptoms to let us know that she had a positive test and is coming in for further evaluation. I strongly encouraged her to continue to wear her mask. She is safe for home discharge Discharge Plan Departure Patient Disposition: Home Clinical Impression: Black eye of left side Qualifiers: Encounter type: initial encounter Qualified Code(s): S00.12XA - Contusion of left eyelid and periocular area, initial encounter Instructions: DI for Eye Contusion, DI for COVID-19 (Suspected or Confirmed ) Activity Restrictions/Additional Instructions: Thank you for coming in today Your black eye seems to be resolving nicely and there are no obvious concerns for fractures around the eyeball or damage to the eyeball itself. I suspect that you will continue to heal nicely. Regarding the positive Covid test almost 14 days ago and question of temperature today, it is difficult to give you solid advice as we simply do not have enough scientific data on recovery from Covid. Even with minimal symptoms you can absolutely spread the disease. Recommendation is to continue to quarantine until all symptoms, including fevers, fatigue, general malaise, abdominal discomfort/nausea, cough have all completely resolved without needing any additional medications for at least 3-5 days before you are out in public again. When you are out in public it is vital that you do wear a mask. If you have worsening symptoms please call us 1st to let us know that you had a positive Covid test 2 weeks prior so that we have a room ready and can take excellent care of you. Your blood pressure was elevated today. Please make sure you are taking all of your usual medications for blood pressure. I hope your eye heals quickly and completely. Prescriptions: No Action multivitamin Tablet 1 tab PO DAILY Qty: 0 RF: 0 atorvastatin 20 mg tablet 20 mg PO DAILY RF: 0 levothyroxine 25 mcg tablet 25 mcg PO DAILY RF: 0 dicyclomine 20 mg tablet 20 mg PO QID RF: 0 gabapentin 100 mg capsule 200 mg PO DAILY RF: 0 ergocalciferol (vitamin D2) 50,000 unit capsule 50,000 unit PO QWEEK RF: 0 losartan-hydrochlorothiazide 50-12.5 mg tablet 1 tab PO BID RF: 0 amitriptyline 100 mg tablet 100 mg PO DAILY RF: 0 diazepam 5 mg tablet 5 mg PO TID PRN (Reason: Anxiety) RF: 0 venlafaxine 75 mg tablet extended release 24hr 75 mg PO DAILY RF: 0 flaxseed oil 1,000 mg Capsule 1,000 mg PO DAILY RF: 0 biotin 5,000 mcg Tablet, Sublingual 5,000 mcg SUBLINGUAL DAILY RF: 0 hydrocodone-acetaminophen 5-325 mg tablet 1 tab PO Q6-8H PRN (Reason: pain) RF: 0 hydrocodone-acetaminophen [Beggs] 5-325 mg tablet 1 tab PO Q4-6H PRN (Reason: pain) Qty: 40 RF: 0 Referrals: Flores Groves PA-C [Primary Care Provider] -
[2020-03-26 15:34] VITALS: BP 195/91; PULSE 80; RESP 16; TEMP 37.5; O2SAT 98; BMI 40.0
[2020-03-26 16:13] VITALS: BP 179/82; PULSE 80
--- NOTE | 2020-03-26 16:20 | PC.NURSE ---
patient was given a covid 19 test in [place] and tested positive on 03/16/20. She claimed that she had a cough 4 days prior to that. She then got on an airplane last monday and flew home to [facility] after she was cleared to break her quarantine. Today she came into the ED with complaints that her eye was hurting from a fall. She was cleared for her eye pain and did not meet criteria for an x-ray
[2020-03-26 16:24] VITALS: BP 179/82; PULSE 85; RESP 12; O2SAT 98
== END 2020-03-26 16:26 | disposition home or self-care (01) ==
PROVIDERS: Emergency Provider Emergency Medicine; PCP Student in an Organized Health Care Education/Training Program
DX: S00.12XA Contusion of left eyelid and periocular area, initial encounter (principal); W01.0XXA Fall on same level from slipping, tripping and stumbling without subsequent striking against object, initial encounter
CPT/HCPCS: 99281

== ENCOUNTER → 2021-03-03 16:08 | Outpatient (CLI) | payer MEDICARE, OTHER, SELFPAY ==
--- NOTE | 2021-03-03 | DI.MG.S_ITS ---
UNILATERAL LEFT DIGITAL SCREENING MAMMOGRAM 3D/2D WITH CAD: 03/03/2021 CLINICAL: Personal history of right breast cancer. Comparison is made to exams dated: 11/13/2019 mammogram, 08/13/2018 mammogram, and 06/15/2017 mammogram - [facility]. There are scattered fibroglandular elements in left breast. Current study was also evaluated with a Computer Aided Detection (CAD) system. There are benign calcifications in the left breast. There also are benign vascular calcifications in the left breast. No significant masses, calcifications, or other findings are seen in the breast. There has been no significant interval change. IMPRESSION: BENIGN There is no mammographic evidence of malignancy. A 1 year screening mammogram is recommended. This exam was interpreted at Station ID: [id number]. NOTE: For mammograms, a report in lay terms will be sent to the patient. Approximately 15% of breast malignancies will not be visualized mammographically. In the management of a palpable breast mass, a negative mammogram must not discourage biopsy of a clinically suspicious lesion. Electronically Signed By: Dane Villafana acr/marsha:03/03/2021 16:46:46 letter sent: Normal Exam ACR BI-RADS Category 2: Benign Finding(s) [id number]
== END ==
PROVIDERS: PCP Student in an Organized Health Care Education/Training Program; Referring Provider Student in an Organized Health Care Education/Training Program; Visit Provider Student in an Organized Health Care Education/Training Program
DX: Z12.31 Encounter for screening mammogram for malignant neoplasm of breast (principal); Z85.3 Personal history of malignant neoplasm of breast
CPT/HCPCS: 77063; 77067

== ENCOUNTER 2021-07-28 22:17 | Emergency (ER) | payer MEDICARE, OTHER, SELFPAY ==
[2021-07-28 22:23] VITALS: BP 176/89; PULSE 83; RESP 22; TEMP 37.2; O2SAT 100
--- NOTE | 2021-07-28 22:24 | ED.FALL ---
HPI - Fall General Chief Complaint: Back Pain/Injury Stated Complaint: Fall Time Seen by Provider: 07/28/21 22:24 History of Present Illness HPI Narrative: 81-year-old female nonsmoker with history of hypertension, hypothyroid and spinal stenosis presents by EMS for evaluation of right posterior flank pain after a ground level fall suffered just prior to arrival. She denies any precipitating factors to her fall such as dizziness, weakness or lightheadedness. When she fell she initially landed on her left knee which does not her but then quickly dirt her body around in her primary complaint is of right posterior rib pain. She does not think that she landed on anything hard significant pain motion palpation. She is not short of breath denies hemoptysis. She has no nausea, vomiting or diarrhea. She denies any head or neck injury. She does not take blood thinners. Related Data Home Medications Medication Instructions Recorded Confirmed multivitamin 1 tab PO DAILY #0 11/16/09 01/25/19 amitriptyline 100 mg tablet 100 mg PO DAILY 01/22/19 01/25/19 atorvastatin 20 mg tablet 20 mg PO DAILY 01/22/19 01/25/19 diazepam 5 mg tablet 5 mg PO TID PRN 01/22/19 01/25/19 dicyclomine 20 mg tablet 20 mg PO QID 01/22/19 01/25/19 ergocalciferol (vitamin D2) 1,250 50,000 unit PO QWEEK 01/22/19 01/25/19 mcg (50,000 unit) capsule gabapentin 100 mg capsule 200 mg PO DAILY 01/22/19 01/25/19 levothyroxine 25 mcg tablet 25 mcg PO DAILY 01/22/19 01/25/19 losartan 50 mg-hydrochlorothiazide 1 tab PO BID 01/22/19 01/25/19 12.5 mg tablet venlafaxine 75 mg tablet,extended 75 mg PO DAILY 01/22/19 01/25/19 release 24 hr biotin 5,000 mcg sublingual tablet 5,000 mcg SUBLINGUAL DAILY 01/25/19 01/25/19 flaxseed oil 1,000 mg capsule 1,000 mg PO DAILY 01/25/19 01/25/19 hydrocodone 5 mg-acetaminophen 325 1 tab PO Q6-8H PRN 01/25/19 01/25/19 mg tablet Previous Rx's Medication Instructions Recorded hydrocodone 5 mg-acetaminophen 325 1 tab PO Q4-6H PRN #40 tab 01/25/19 mg tablet ([place]) hydrocodone 5 mg-acetaminophen 325 1 tab PO Q4-6H PRN #10 tab 07/29/21 mg tablet lidocaine 5 % topical patch 1 patch TOP DAILY #15 each 07/29/21 (Lidoderm) Allergies Allergy/AdvReac Type Severity Reaction Status Date / Time isoniazid [ISONIAZID] Allergy Severe RASH Verified 03/26/20 15:37 zolpidem [From Ambien] AdvReac Severe it makes Verified 03/26/20 15:37 me crazy Beta-Blockers AdvReac Mild LOW HR ,BP Verified 03/26/20 15:37 (Beta-Adrenergic Bloc [BETA-BLOCKERS (BETA-ADRENERGIC BLOC] Calcium Channel Blocking AdvReac Mild low hr,bp Verified 03/26/20 15:37 Agents-Dih [CALCIUM CHANNEL BLOCKING AGENTS-DIH] oxycodone AdvReac it's too Verified 03/26/20 15:37 strong; doesn't remember rxn Review of Systems Review of Systems Narrative: GENERAL: Denies chills, fatigue, malaise, fever, sweats. HEENT: Denies sinus pain, ear pain, sore throat, difficulty swallowing, dizziness. RESPIRATORY: See HPI CARDIOVASCULAR: Denies chest pain, palpitations, orthopnea, edema, GASTROINTESTINAL: Denies nausea, vomiting, abdominal pain, diarrhea, constipation, melena. : Denies dysuria, frequency, incontinence, hematuria, urinary retention. MUSCULOSKELETAL: See HPI SKIN: Denies rash, skin lesions, or other NEUROLOGIC: Denies weakness, headache, numbness, change in speech, confusion, seizures, incoordination. PSYCHIATRIC: No concerning psychosocial issues. 12 point review of systems is negative except for those stated above Patient History Medical History Acute bronchitis with bronchospasm COVID-19 Left wrist fracture (12/26/18) Sciatica Spinal stenosis of lumbar region Sprain of left hand Surgical wound infection Ventral hernia Surgical History History of carpal tunnel surgery of right wrist (01/22/15) History of lumbar fusion (01/11/16) History of tonsillectomy Status post cholecystectomy Status post hysterectomy Status post knee surgery Social History household members: none Smoking Status: Never smoker alcohol intake: current Smoking Status: Never smoker alcohol intake frequency: holidays/special occasions only Substance Use Type: does not use Exam Narrative Exam Narrative: GENERAL: [81 year old patient appears stated age. Well-developed patient, in mild distress. HEAD: Atraumatic. Normocephalic. EYES: Pupils equal round and reactive. Extraocular motions intact. No scleral icterus. No injection or drainage. ENT: Nose without bleeding, purulent drainage. Throat without erythema, tonsillar hypertrophy or exudate. Airway patent. NECK: Trachea midline. Non tender CARDIOVASCULAR: Regular rate and rhythm without murmurs, gallops, or rubs. RESPIRATORY: Clear to auscultation. Breath sounds equal bilaterally. No wheezes, rales, or rhonchi. Posterior ribs tender to palpate on the right side, no erythema, warmth, ecchymosis, crepitance or subcu emphysema GASTROINTESTINAL: Abdomen soft, non-tender, nondistended. EXTREMITIES: No edema or joint tenderness. BACK: Mild midline pain to palpation of the Thoracics and lumbars, no step-offs or crepitance. No saddle anesthesia, no lower extremity numbness, tingling or measurable weakness NEURO: AOx3. SKIN: No rash or erythema of visible areas Initial Vital Signs Initial Vital Signs: Vital Signs Temperature 99.0 F 07/28/21 22:23 Pulse Rate 83 07/28/21 22:23 Respiratory Rate 22 07/28/21 22:23 Blood Pressure 176/89 H 07/28/21 22:23 Pulse Oximetry 100 07/28/21 22:23 Course Orders Ordered: ED Orders 07/28/21 22:40 XR lumbar spine 2-3V Stat XR ribs RT min 3V w CXR1V Stat XR thoracic spine 3V Stat Discontinued Medications Hydrocodone Bitart/Acetaminophen (Hydrocodone/Acet 5/325 Prepack) 1 bottle MISC SEEINSTR ONE Stop: 07/29/21 00:50 Last Admin: 07/29/21 01:02 Dose: 1 bottle Documented by: OZZY Lidocaine (Lidocaine Patch 1 Each Adh..Patch) 1 each TOP NOW ONE Stop: 07/29/21 00:10 Last Admin: 07/29/21 00:33 Dose: 1 each Documented by: ANNA Vital Signs Vital signs: Vital Signs - 8 hr 07/28/21 23:28 07/28/21 23:30 07/29/21 00:00 Pulse Rate 79 79 78 Blood Pressure 178/77 H 172/80 H 163/73 H Pulse Oximetry 97 98 97 MDM - Fall Imaging Data Chest x-ray: Radiologist's Impression: [address] [address] XRay Report Signed Patient: Loraine Javier MR#: [id number] : 1940 Acct:[id number] Age/Sex: 81 / F Date of Service: 07/28/21 Loc: ED Accession Number: [id number] ?? Procedure: XR thoracic spine 3V Ordering Provider: Eugene Molina D.O. PROCEDURE:? XR THORACIC SPINE 3V ? INDICATIONS:? fall with severe midline pain ? TECHNIQUE:? 3 views of the thoracic spine were acquired.? ? COMPARISON:? [facility], CR, XR RIBS RT MIN 3V W CXR 1V, 07/28/2021, 22:35.? [facility], CR, XR THORACIC SPINE 3V, 12/13/2019, 10:16. ? FINDINGS:? ? Bones:? No fractures or dislocations.? No suspicious bony lesions.? 12 pairs of ribs are noted.? There is irregularity the posterior aspect the 10th and 11th ribs.? However, no fractures identified on rib series x-ray of 07/28/2021.? Multilevel degenerative changes are present. ? Soft tissues:? No paravertebral stripe thickening.? ? ? IMPRESSION:? Multilevel degenerative changes.? Irregularity within the posterior 10th 11th ribs are noted without corresponding abnormality on rib series x-rays.? This could be secondary to patient positioning screening appearance of possible fracture, overlapping osseous structures or fracture simply not well seen on rib series.? If pain is present within this region, fracture cannot be excluded.? ? ? Dictated by: Keyona Gonsalves M.D. on 07/28/2021 at 23:40 ? ? thoracic Xray: Radiologist's Impression: [address] [address] XRay Report Signed Patient: Loraine Javier MR#: [id number] : 1940 Acct:[id number] Age/Sex: 81 / F Date of Service: 07/28/21 Loc: ED Accession Number: [id number] ?? Procedure: XR thoracic spine 3V Ordering Provider: Eugene Molina D.O. PROCEDURE:? XR THORACIC SPINE 3V ? INDICATIONS:? fall with severe midline pain ? TECHNIQUE:? 3 views of the thoracic spine were acquired.? ? COMPARISON:? [facility], CR, XR RIBS RT MIN 3V W CXR 1V, 07/28/2021, 22:35.? [facility], CR, XR THORACIC SPINE 3V, 12/13/2019, 10:16. ? FINDINGS:? ? Bones:? No fractures or dislocations.? No suspicious bony lesions.? 12 pairs of ribs are noted.? There is irregularity the posterior aspect the 10th and 11th ribs.? However, no fractures identified on rib series x-ray of 07/28/2021.? Multilevel degenerative changes are present. ? Soft tissues:? No paravertebral stripe thickening.? ? ? IMPRESSION:? Multilevel degenerative changes.? Irregularity within the posterior 10th 11th ribs are noted without corresponding abnormality on rib series x-rays.? This could be secondary to patient positioning screening appearance of possible fracture, overlapping osseous structures or fracture simply not well seen on rib series.? If pain is present within this region, fracture cannot be excluded.? ? ? Dictated by: Keyona Gonsalves M.D. on 07/28/2021 at 23:40 ? ? Lumbar Xray: Radiologist's Impression: [address] [address] XRay Report Signed Patient: Loraine Javier MR#: [id number] : 1940 Acct:[id number] Age/Sex: 81 / F Date of Service: 07/28/21 Loc: ED Accession Number: [id number] ?? Procedure: XR thoracic spine 3V Ordering Provider: Eugene Molina D.O. PROCEDURE:? XR THORACIC SPINE 3V ? INDICATIONS:? fall with severe midline pain ? TECHNIQUE:? 3 views of the thoracic spine were acquired.? ? COMPARISON:? [facility], CR, XR RIBS RT MIN 3V W CXR 1V, 07/28/2021, 22:35.? [facility], CR, XR THORACIC SPINE 3V, 12/13/2019, 10:16. ? FINDINGS:? ? Bones:? No fractures or dislocations.? No suspicious bony lesions.? 12 pairs of ribs are noted.? There is irregularity the posterior aspect the 10th and 11th ribs.? However, no fractures identified on rib series x-ray of 07/28/2021.? Multilevel degenerative changes are present. ? Soft tissues:? No paravertebral stripe thickening.? ? ? IMPRESSION:? Multilevel degenerative changes.? Irregularity within the posterior 10th 11th ribs are noted without corresponding abnormality on rib series x-rays.? This could be secondary to patient positioning screening appearance of possible fracture, overlapping osseous structures or fracture simply not well seen on rib series.? If pain is present within this region, fracture cannot be excluded.? ? ? Dictated by: Keyona Gonsalves M.D. on 07/28/2021 at 23:40 ? ? MDM Narrative Medical decision making narrative: Patient with low risk ground level fall and right posterior back pain has suspicion of 10th and 11 rib fractures on imaging. She is able to ambulate to and from the bathroom with the use of a walker, she uses a walker at home. Discharge Plan Departure Patient Disposition: Home Clinical Impression: Closed rib fracture Instructions: DI for Rib Fracture Activity Restrictions/Additional Instructions: *You have been diagnosed with [ground level fall with probable rib fractures of your 10th and 11th ribs on the right side. X-rays of the bones of your back were very reassuring there is no evidence of fracture *What to do: *Please continue to take your regular medications as directed. [ x] New medication prescriptions sent to your pharmacy: [[facility]] [ ] New medication written as a paper prescription [ ] No new medications given *Please follow up with your primary care provider in 2-3 days, call for an appointment. Let them know you were seen in the Emergency Department and that we ask that you be seen in follow up. We will electronically transmit a record of today's note if your PCP is in our system *If you do not have a primary care provider please contact the [facility] Resource line at [phone]. They will ask some questions about your medical history and help get you set up with a doctor in the community. *Return to Emergency Department if you should have any new, worsening or concerning symptoms, such as [fever greater than 101 F, shaking chills, worsening pain, persistent vomiting or other bothersome symptoms] You have been prescribed a short course of narcotic medications. These are potentially dangerous and addictive medications that should be used carefully. While on these medications you cannot drive or operate heavy machinery. Additionally, you cannot sign legal documents or perform any duties such as this. 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 Please understand that we cannot provide further refills of narcotics or controlled substances through the ED and your pain management will need to be through your Primary Care Provider Prescriptions: New hydrocodone-acetaminophen 5-325 mg tablet 1 tab PO Q4-6H PRN (Reason: pain) Qty: 10 0RF lidocaine [Lidoderm] 5 % adhesive patch,medicated 1 patch TOP DAILY Qty: 15 0RF Rx Instructions: leave on most painful area for 12 hrs No Action multivitamin Tablet 1 tab PO DAILY Qty: 0 0RF atorvastatin 20 mg tablet 20 mg PO DAILY 0RF levothyroxine 25 mcg tablet 25 mcg PO DAILY 0RF dicyclomine 20 mg tablet 20 mg PO QID 0RF gabapentin 100 mg capsule 200 mg PO DAILY 0RF ergocalciferol (vitamin D2) 50,000 unit capsule 50,000 unit PO QWEEK 0RF losartan-hydrochlorothiazide 50-12.5 mg tablet 1 tab PO BID 0RF amitriptyline 100 mg tablet 100 mg PO DAILY 0RF diazepam 5 mg tablet 5 mg PO TID PRN (Reason: Anxiety) 0RF venlafaxine 75 mg tablet extended release 24hr 75 mg PO DAILY 0RF flaxseed oil 1,000 mg Capsule 1,000 mg PO DAILY 0RF biotin 5,000 mcg Tablet, Sublingual 5,000 mcg SUBLINGUAL DAILY 0RF hydrocodone-acetaminophen 5-325 mg tablet 1 tab PO Q6-8H PRN (Reason: pain) 0RF hydrocodone-acetaminophen [[place]] 5-325 mg tablet 1 tab PO Q4-6H PRN (Reason: pain) Qty: 40 0RF Referrals: Flores Groves PA-C [Primary Care Provider] -
[2021-07-28 22:30] VITALS: PULSE 81; O2SAT 98
--- NOTE | 2021-07-28 22:40 | DI.RAD.S_ITS ---
PROCEDURE: XR THORACIC SPINE 3V INDICATIONS: fall with severe midline pain TECHNIQUE: 3 views of the thoracic spine were acquired. COMPARISON: [facility], CR, XR RIBS RT MIN 3V W CXR 1V, 07/28/2021, 22:35. [facility], CR, XR THORACIC SPINE 3V, 12/13/2019, 10:16. FINDINGS: Bones: No fractures or dislocations. No suspicious bony lesions. 12 pairs of ribs are noted. There is irregularity the posterior aspect the 10th and 11th ribs. However, no fractures identified on rib series x-ray of 07/28/2021. Multilevel degenerative changes are present. Soft tissues: No paravertebral stripe thickening. IMPRESSION: Multilevel degenerative changes. Irregularity within the posterior 10th 11th ribs are noted without corresponding abnormality on rib series x-rays. This could be secondary to patient positioning screening appearance of possible fracture, overlapping osseous structures or fracture simply not well seen on rib series. If pain is present within this region, fracture cannot be excluded. Dictated by: Keyona Gonsalves M.D. on 07/28/2021 at 23:40 Approved by: Keyona Gonsalves M.D. on 07/28/2021 at 23:45
--- NOTE | 2021-07-28 22:40 | DI.RAD.S_ITS ---
PROCEDURE: XR LUMBAR SPINE 2-3V INDICATIONS: fall with lumbar pain TECHNIQUE: 3 views of the lumbar spine were acquired. COMPARISON: [facility], CR, XR LUMBAR SPINE 2-3V, 12/10/2019, 16:30. FINDINGS: Bones: 5 [id number] vertebrae are present. There is posterior fusion. Hardware appears. No vertebral body compression fractures. Multilevel degenerative changes. No suspicious bony lesions. Soft tissues: Overlying bowel gas pattern is normal. No suspicious soft tissue calcifications. IMPRESSION: Degenerative and postsurgical changes. No visualized acute fracture or dislocation. However, if clinical concern and/or pain persist, short interval imaging followup in 7-10 days is recommended, as occult injury cannot be definitively excluded. Dictated by: Keyona Gonsalves M.D. on 07/28/2021 at 23:45 Approved by: Keyona Gonsalves M.D. on 07/28/2021 at 23:48
--- NOTE | 2021-07-28 22:40 | DI.RAD.S_ITS ---
PROCEDURE: XR RIBS RT MIN 3V W CXR 1V INDICATIONS: fall with severe pain TECHNIQUE: 3 views of the right ribs were acquired, along with a single view chest. COMPARISON: None. FINDINGS: Surgical changes and devices: None. Bones and chest wall: No fractures or dislocations. No suspicious bony lesions. Overlying soft tissues appear unremarkable. Lungs and pleura: No pleural effusions or pneumothorax. Lungs appear clear. Mediastinum: Mediastinal contours appear normal. Heart size is normal. IMPRESSION: No visualized acute fracture or dislocation. However, if clinical concern and/or pain persist, short interval imaging followup in 7-10 days is recommended, as occult injury cannot be definitively excluded. Dictated by: Keyona Gonsalves M.D. on 07/28/2021 at 23:49 Approved by: Keyona Gonsalves M.D. on 07/28/2021 at 23:49
[2021-07-28 22:41] VITALS: BP 184/78; PULSE 85; RESP 20; O2SAT 98
[2021-07-28 23:28] VITALS: BP 178/77; PULSE 79; O2SAT 97
[2021-07-28 23:30] VITALS: BP 172/80; PULSE 79; O2SAT 98
[2021-07-29] VITALS: BP 163/73; PULSE 78; O2SAT 97
[2021-07-29] MEDS: LIDOCAINE PATCH 1 EACH ADH..PATCH TOP (00:33)
--- NOTE | 2021-07-29 00:42 | PC.NURSE ---
Patient was able to walk to the bathroom with a walker. W/C back to bed.
[2021-07-29] MEDS: HYDROCODONE/ACET 5/325 PREPACK 1 BOTTLE MISC (01:02)
== END 2021-07-29 01:02 | disposition home or self-care (01) ==
PROVIDERS: Emergency Provider Emergency Medicine; PCP Student in an Organized Health Care Education/Training Program
DX: S22.31XA Fracture of one rib, right side, initial encounter for closed fracture (principal); Z88.5 Allergy status to narcotic agent; W18.30XA Fall on same level, unspecified, initial encounter
CPT/HCPCS: 71101; 72072; 72100; 99282; 99283